=== PATIENT | male | born 1980 | race Caucasian/White ===

== ENCOUNTER 2017-09-24 17:58 | Emergency (ER) | payer MEDICAID ==
[~2017-09-24] VITALS: Ht 172.7 cm; Wt 72.7 kg
[~2017-09-24 17:58] MED LIST: NO HOME MEDS
[2017-09-24 18:15] VITALS: BP 114/65
[2017-09-24] MEDS ORDERED: neomy sulf/polymyx B sulf/HC 10ml otic suspension EACH EAR ONE (20:55)
[2017-09-24] MEDS ORDERED: LIDOcaine 4% (40 mg/ml) topical solution 50ml TP ONE (20:55)
== END 2017-09-24 21:40 | disposition home or self-care (01) ==
LOC: ER 17:59
DX: H60.93 Unspecified otitis externa, bilateral (principal)
CPT/HCPCS: 82948; 99282